=== PATIENT | female | born 1935 | race Caucasian/White ===

== ENCOUNTER 2023-01-09 16:28 | Emergency (ER) | payer MEDICARE ==
[~2023-01-09] VITALS: Ht 149.9 cm; Wt 75.0 kg
[2023-01-09 18:17] LABS: BASO # 0.1 10^3/uL (0.0-0.2); BASO % 0.8 % (0.0-1.0); EOS # 0.1 10^3/uL (0.0-0.5); EOS % 0.9 % (0.0-3.0); HEMATOCRIT 41.1 % (36.0-47.0); HEMOGLOBIN 13.7 g/dl (12.0-15.5); LYMPH # 1.4 10^3/uL (1.5-5.0); LYMPH % 16.1 % (24.0-44.0); MEAN CORPUSCULAR HEMOGLOBIN 31.2 pg (27.0-33.0); MEAN CORPUSCULAR HGB CONC 33.3 g/dl (32.0-36.5); MEAN CORPUSCULAR VOLUME 93.6 fl (80.0-96.0); MONO # 0.8 10^3/uL (0.0-0.8); MONO % 8.8 % (2.0-8.0); NEUTROPHILS # 6.4 10^3/uL (1.5-8.5); NEUTROPHILS % 72.6 % (36.0-66.0); PLATELET COUNT, AUTOMATED 263 10^3/uL (150-450); RED BLOOD COUNT 4.39 10^6/uL (4.00-5.40); WHITE BLOOD COUNT 8.8 10^3/uL (4.0-10.0)
[2023-01-09 18:48] LABS: BLOOD UREA NITROGEN 13 MG/DL (9-23); CALCIUM LEVEL 8.5 MG/DL (8.3-10.6); CARBON DIOXIDE LEVEL 31 MMOL/L (20-31); CHLORIDE LEVEL 90 MMOL/L (98-107); CREATININE FOR GFR 0.91 MG/DL (0.55-1.30); GLOMERULAR FILTRATION RATE > 60.0 (>32); GLUCOSE, FASTING 109 MG/DL (74-106); POTASSIUM SERUM 4.5 MMOL/L (3.5-5.1); SODIUM LEVEL 127 MMOL/L (136-145)
[2023-01-09 19:11] LABS: CK-MB VALUE MASS < 1.0 NG/ML (<3.6)
[2023-01-09 19:12] LABS: DIGOXIN LEVEL 1.7 NG/ML (0.8-2.0)
[2023-01-09 19:22] LABS: CPK CREATINE PHOSPHOKINASE 38 U/L (34-145); MB/CK RELATIVE INDEX 2.63 (< OR =4)
[2023-01-09 20:17] VITALS: O2SAT 93
[2023-01-09] MEDS ORDERED: FUROSEMIDE 40MG/4ML VIAL IV ONE (20:25)
[2023-01-09 21:00] LABS: INR 2.15; PROTHROMBIN TIME 24.4 SECONDS (12.5-14.5)
[2023-01-09] MEDS ORDERED: DOXYCYCLINE HYCLATE 100MG TABLET PO ONE (21:10)
[2023-01-09] MEDS ORDERED: DOXY-443 PO (21:12)
[2023-01-09 21:24] VITALS: BP 138/98; TEMP 97; O2SAT 94
== END 2023-01-09 21:39 | disposition home or self-care (01) ==
LOC: M ED 16:28
DX: I50.20 Unspecified systolic (congestive) heart failure (principal); L03.115 Cellulitis of right lower limb; I11.9 Hypertensive heart disease without heart failure; I25.10 Atherosclerotic heart disease of native coronary artery without angina pectoris; E78.5 Hyperlipidemia, unspecified; E11.9 Type 2 diabetes mellitus without complications; H40.9 Unspecified glaucoma; H35.30 Unspecified macular degeneration; Z88.0 Allergy status to penicillin; Z88.2 Allergy status to sulfonamides; Z88.8 Allergy status to other drugs, medicaments and biological substances; Z79.899 Other long term (current) drug therapy
CPT/HCPCS: 71046; 80048; 80162; 82550; 82553; 83880; 84484; 85025; 85610; 93005; 96374; 99284; J1940

== ENCOUNTER 2023-01-15 10:15 | Inpatient (IN) | payer MEDICARE ==
[~2023-01-15] VITALS: Ht 149.9 cm; Wt 71.0 kg
[~2023-01-15 10:15] MED LIST: DOXY-443 PO
[2023-01-15 11:55] LABS: HEMATOCRIT 39.3 % (36.0-47.0); HEMOGLOBIN 13.7 g/dl (12.0-15.5); MEAN CORPUSCULAR HEMOGLOBIN 31.4 pg (27.0-33.0); MEAN CORPUSCULAR HGB CONC 34.9 g/dl (32.0-36.5); MEAN CORPUSCULAR VOLUME 90.1 fl (80.0-96.0); PLATELET COUNT, AUTOMATED 223 10^3/uL (150-450); RED BLOOD COUNT 4.36 10^6/uL (4.00-5.40); WHITE BLOOD COUNT 9.2 10^3/uL (4.0-10.0)
[2023-01-15 12:25] LABS: BLOOD UREA NITROGEN 15 MG/DL (9-23); CALCIUM LEVEL 9.4 MG/DL (8.3-10.6); CARBON DIOXIDE LEVEL 30 MMOL/L (20-31); CHLORIDE LEVEL 82 MMOL/L (98-107); CREATININE FOR GFR 0.81 MG/DL (0.55-1.30); GLOMERULAR FILTRATION RATE > 60.0 (>32); GLUCOSE, FASTING 132 MG/DL (74-106); SODIUM LEVEL 116 MMOL/L (136-145)
[2023-01-15 12:33] LABS: INR 2.44; PROTHROMBIN TIME 26.9 SECONDS (12.5-14.5)
[2023-01-15] MEDS ORDERED: MED REC IN PROGRESS XX SCH (13:00)
[2023-01-15] MEDS ORDERED: DIGO0.123 PO (13:16)
[2023-01-15] MEDS ORDERED: OXYB10TA23 PO (13:16)
[2023-01-15] MEDS ORDERED: LORA1TAB23 PO (13:16)
[2023-01-15] MEDS ORDERED: AMLO1TAB24 PO (13:16)
[2023-01-15] MEDS ORDERED: VENTAER INH (13:16)
[2023-01-15] MEDS ORDERED: ATEN50TA2 PO (13:16)
[2023-01-15] MEDS ORDERED: ADV250INH INH (13:16)
[2023-01-15] MEDS ORDERED: WARF-18 PO (13:16)
[2023-01-15] MEDS ORDERED: FURO40TA2 PO (13:16)
[2023-01-15] MEDS ORDERED: HOME MED LIST COMPLETE! XX SCH (13:20)
[2023-01-15 13:45] LABS: OSMOLALITY URINE 119 MOSM/KG (50-1400)
[2023-01-15 14:08] LABS: FREE T4 1.21 NG/DL (0.89-1.76); THYROID STIMULATING HORMONE 6.115 uIU/ML (0.55-4.78)
[2023-01-15 14:46] LABS: SODIUM,RANDOM URINE < 10 MMOL/L
[2023-01-15] MEDS: FUROSEMIDE 40MG/4ML VIAL IV SCH ×3 (15:26→23:00)
[2023-01-15 15:42] LABS: ALBUMIN 3.1 G/DL (3.2-5.2); ALKALINE PHOSPHATASE 98 U/L (46-116); ALT/SGPT 10 U/L (7.0-40); AST/SGOT 22 U/L (<34); BILIRUBIN,DIRECT 0.3 MG/DL (<0.4); BLOOD UREA NITROGEN 16 MG/DL (9-23); CALCIUM LEVEL 9.1 MG/DL (8.3-10.6); CARBON DIOXIDE LEVEL 29 MMOL/L (20-31); CHLORIDE LEVEL 84 MMOL/L (98-107); CK-MB VALUE MASS 2.3 NG/ML (<3.6); CPK CREATINE PHOSPHOKINASE 101 U/L (34-145); GLOMERULAR FILTRATION RATE > 60.0 (>32); GLUCOSE, FASTING 106 MG/DL (74-106); MAGNESIUM LEVEL 1.9 MG/DL (1.8-2.4); MB/CK RELATIVE INDEX 2.27 (< OR =4); PHOSPHORUS LEVEL 3.9 MG/DL (2.4-5.1); POTASSIUM SERUM 4.2 MMOL/L (3.5-5.1); SODIUM LEVEL 118 MMOL/L (136-145); TOTAL PROTEIN 5.8 G/DL (5.7-8.2)
[2023-01-15 17:10] VITALS: BP 128/66; TEMP 96.5; O2SAT 95
[2023-01-15] MEDS: LACTOBACILLUS ACIDOPHILUS CAP (BACID) PO SCH (18:13)
[2023-01-15] MEDS: WARFARIN SOD 2.5MG TAB PO SCH (18:16)
[2023-01-15 20:00] VITALS: BP 125/80; TEMP 97.2; O2SAT 93
[2023-01-15 20:26] LABS: BLOOD UREA NITROGEN 14 MG/DL (9-23); CALCIUM LEVEL 8.2 MG/DL (8.3-10.6); CARBON DIOXIDE LEVEL 31 MMOL/L (20-31); CHLORIDE LEVEL 85 MMOL/L (98-107); CREATININE FOR GFR 0.75 MG/DL (0.55-1.30); GLOMERULAR FILTRATION RATE > 60.0 (>32); GLUCOSE, FASTING 121 MG/DL (74-106); POTASSIUM SERUM 3.8 MMOL/L (3.5-5.1); SODIUM LEVEL 122 MMOL/L (136-145)
[2023-01-15] MEDS ORDERED: ALBUTEROL 90 MCG/ACT 8GM HFA INHALER INH PRN (22:10)
[2023-01-15] MEDS ORDERED: LORazepam 1 MG TAB PO PRN (22:10)
[2023-01-16] VITALS: BP 132/75; TEMP 97.9; O2SAT 95
[2023-01-16 02:08] LABS: BLOOD UREA NITROGEN 13 MG/DL (9-23); CALCIUM LEVEL 8.8 MG/DL (8.3-10.6); CARBON DIOXIDE LEVEL 30 MMOL/L (20-31); CHLORIDE LEVEL 88 MMOL/L (98-107); CREATININE FOR GFR 0.81 MG/DL (0.55-1.30); GLOMERULAR FILTRATION RATE > 60.0 (>32); GLUCOSE, FASTING 85 MG/DL (74-106); POTASSIUM SERUM 3.6 MMOL/L (3.5-5.1); SODIUM LEVEL 122 MMOL/L (136-145)
[2023-01-16 04:00] VITALS: BP 127/73; TEMP 98.1; O2SAT 96
[2023-01-16] MEDS: FUROSEMIDE 40MG/4ML VIAL IV SCH ×6 (04:44→23:00)
[2023-01-16 06:16] LABS: HEMOGLOBIN 12.7 g/dl (12.0-15.5); MEAN CORPUSCULAR HEMOGLOBIN 31.3 pg (27.0-33.0); MEAN CORPUSCULAR HGB CONC 34.3 g/dl (32.0-36.5); MEAN CORPUSCULAR VOLUME 91.1 fl (80.0-96.0); PLATELET COUNT, AUTOMATED 186 10^3/uL (150-450); RED BLOOD COUNT 4.06 10^6/uL (4.00-5.40)
[2023-01-16 06:24] LABS: INR 2.67; PROTHROMBIN TIME 28.9 SECONDS (12.5-14.5)
[2023-01-16 06:25] LABS: PARTIAL THROMBOPLASTIN TIME 52.3 SECONDS (24.8-34.2)
[2023-01-16 06:34] LABS: MAGNESIUM LEVEL 1.9 MG/DL (1.8-2.4); PHOSPHORUS LEVEL 4.3 MG/DL (2.4-5.1)
[2023-01-16 06:36] LABS: BLOOD UREA NITROGEN 13 MG/DL (9-23); CALCIUM LEVEL 8.2 MG/DL (8.3-10.6); CARBON DIOXIDE LEVEL 33 MMOL/L (20-31); CHLORIDE LEVEL 88 MMOL/L (98-107); CREATININE FOR GFR 0.78 MG/DL (0.55-1.30); GLOMERULAR FILTRATION RATE > 60.0 (>32); GLUCOSE, FASTING 82 MG/DL (74-106); POTASSIUM SERUM 3.8 MMOL/L (3.5-5.1); SODIUM LEVEL 126 MMOL/L (136-145)
[2023-01-16] MEDS: ADVAIR HFA 115/21MCG INHALER INH SCH ×2 (07:25→20:26)
[2023-01-16 08:05] VITALS: BP 110/18; TEMP 97.3; O2SAT 92
[2023-01-16] MEDS: oxyBUTYnin *DITROPAN XL* 5 MG TABCR PO SCH (09:57)
[2023-01-16] MEDS: LACTOBACILLUS ACIDOPHILUS CAP (BACID) PO SCH ×2 (09:57→18:24)
[2023-01-16 11:31] VITALS: BP 130/60; TEMP 97.2; O2SAT 98
[2023-01-16 13:43] LABS: BLOOD UREA NITROGEN 14 MG/DL (9-23); CALCIUM LEVEL 8.2 MG/DL (8.3-10.6); CARBON DIOXIDE LEVEL 29 MMOL/L (20-31); CHLORIDE LEVEL 88 MMOL/L (98-107); CREATININE FOR GFR 0.87 MG/DL (0.55-1.30); GLOMERULAR FILTRATION RATE > 60.0 (>32); GLUCOSE, FASTING 154 MG/DL (74-106); POTASSIUM SERUM 4.4 MMOL/L (3.5-5.1); SODIUM LEVEL 124 MMOL/L (136-145)
[2023-01-16 15:34] VITALS: BP 132/56; TEMP 97.6; O2SAT 95
[2023-01-16] MEDS: WARFARIN SOD 2.5MG TAB PO SCH (18:24)
[2023-01-16] MEDS ORDERED: MIRALAX *UNIT DOSE* 17GM PACKET PO PRN (18:55)
[2023-01-16 20:29] LABS: BLOOD UREA NITROGEN 17 MG/DL (9-23); CALCIUM LEVEL 8.2 MG/DL (8.3-10.6); CARBON DIOXIDE LEVEL 32 MMOL/L (20-31); CHLORIDE LEVEL 89 MMOL/L (98-107); GLOMERULAR FILTRATION RATE > 60.0 (>32); GLUCOSE, FASTING 142 MG/DL (74-106); SODIUM LEVEL 127 MMOL/L (136-145)
[2023-01-16 20:37] VITALS: BP 152/74; TEMP 97.2; O2SAT 98
[2023-01-16] MEDS: DOCUSATE SODIUM 100MG CAPSULE PO SCH (20:43)
[2023-01-17] VITALS (9 sets, daily range): BP systolic 120–128; BP diastolic 52–60; TEMP 96.8–98.6; O2SAT 87–99
[2023-01-17] MEDS: FUROSEMIDE 40MG/4ML VIAL IV SCH ×6 (03:22→23:00)
[2023-01-17] MEDS: ACETAMINOPHEN TAB 650MG DOSE (2X325MG) PO PRN ×2 (03:24→09:59)
[2023-01-17 06:12] LABS: HEMATOCRIT 35.1 % (36.0-47.0); HEMOGLOBIN 11.7 g/dl (12.0-15.5); MEAN CORPUSCULAR HGB CONC 33.3 g/dl (32.0-36.5); MEAN CORPUSCULAR VOLUME 92.9 fl (80.0-96.0); PLATELET COUNT, AUTOMATED 165 10^3/uL (150-450); RED BLOOD COUNT 3.78 10^6/uL (4.00-5.40); WHITE BLOOD COUNT 11.2 10^3/uL (4.0-10.0)
[2023-01-17 06:34] LABS: INR 2.75; PROTHROMBIN TIME 29.5 SECONDS (12.5-14.5)
[2023-01-17 06:35] LABS: PARTIAL THROMBOPLASTIN TIME 51.1 SECONDS (24.8-34.2)
[2023-01-17 07:36] LABS: ALBUMIN 2.8 G/DL (3.2-5.2); ALKALINE PHOSPHATASE 81 U/L (46-116); ALT/SGPT < 9 U/L (7.0-40); AST/SGOT 12 U/L (<34); BILIRUBIN,TOTAL 0.7 MG/DL (0.3-1.2); BLOOD UREA NITROGEN 16 MG/DL (9-23); CARBON DIOXIDE LEVEL 32 MMOL/L (20-31); CHLORIDE LEVEL 92 MMOL/L (98-107); CREATININE FOR GFR 0.84 MG/DL (0.55-1.30); GLOMERULAR FILTRATION RATE > 60.0 (>32); GLUCOSE, FASTING 111 MG/DL (74-106); POTASSIUM SERUM 3.7 MMOL/L (3.5-5.1); SODIUM LEVEL 128 MMOL/L (136-145); TOTAL PROTEIN 5.1 G/DL (5.7-8.2)
[2023-01-17] MEDS: ADVAIR HFA 115/21MCG INHALER INH SCH ×2 (07:52→20:41)
[2023-01-17 08:52] LABS: MAGNESIUM LEVEL 1.8 MG/DL (1.8-2.4); PHOSPHORUS LEVEL 3.8 MG/DL (2.4-5.1)
[2023-01-17] MEDS: DOCUSATE SODIUM 100MG CAPSULE PO SCH ×2 (09:48→22:04)
[2023-01-17] MEDS: DAPAGLIFLOZIN PROPANEDIOL 10MG TABLET (FARXIGA) PO SCH (09:48)
[2023-01-17] MEDS: SPIRONOLACTONE 12.5MG PER 1/2 TABLET PO SCH (09:49)
[2023-01-17] MEDS: oxyBUTYnin *DITROPAN XL* 5 MG TABCR PO SCH (09:49)
[2023-01-17] MEDS: LACTOBACILLUS ACIDOPHILUS CAP (BACID) PO SCH ×2 (09:51→17:12)
[2023-01-17] MEDS ORDERED: BISACODYL 5MG TAB PO ONE (14:00)
[2023-01-17] MEDS: WARFARIN SOD 2.5MG TAB PO SCH (17:12)
[2023-01-17] MEDS: POTASSIUM CHLORIDE 10MEQ SR TABLET PO SCH (22:04)
[2023-01-17] MEDS: SENNA 8.6 MG TAB (SENOKOT) PO SCH (22:04)
[2023-01-18] VITALS (21 sets, daily range): BP systolic 108–138; BP diastolic 54–77; TEMP 96.7–98.8; O2SAT 83–98
[2023-01-18] MEDS: FUROSEMIDE 40MG/4ML VIAL IV SCH ×6 (03:00→23:00)
[2023-01-18 06:16] LABS: HEMATOCRIT 39.4 % (36.0-47.0); HEMOGLOBIN 12.8 g/dl (12.0-15.5); MEAN CORPUSCULAR HEMOGLOBIN 30.6 pg (27.0-33.0); MEAN CORPUSCULAR HGB CONC 32.5 g/dl (32.0-36.5); MEAN CORPUSCULAR VOLUME 94.3 fl (80.0-96.0); PLATELET COUNT, AUTOMATED 174 10^3/uL (150-450); RED BLOOD COUNT 4.18 10^6/uL (4.00-5.40); WHITE BLOOD COUNT 11.5 10^3/uL (4.0-10.0)
[2023-01-18 06:36] LABS: INR 2.47; PROTHROMBIN TIME 27.2 SECONDS (12.5-14.5)
[2023-01-18 06:37] LABS: PARTIAL THROMBOPLASTIN TIME 48.2 SECONDS (24.8-34.2)
[2023-01-18 06:48] LABS: ALBUMIN 2.9 G/DL (3.2-5.2); ALKALINE PHOSPHATASE 92 U/L (46-116); ALT/SGPT 9 U/L (7.0-40); AST/SGOT 15 U/L (<34); BLOOD UREA NITROGEN 14 MG/DL (9-23); CALCIUM LEVEL 8.8 MG/DL (8.3-10.6); CARBON DIOXIDE LEVEL 33 MMOL/L (20-31); CHLORIDE LEVEL 93 MMOL/L (98-107); CREATININE FOR GFR 0.89 MG/DL (0.55-1.30); GLOMERULAR FILTRATION RATE > 60.0 (>32); GLUCOSE, FASTING 100 MG/DL (74-106); POTASSIUM SERUM 3.7 MMOL/L (3.5-5.1); SODIUM LEVEL 132 MMOL/L (136-145); TOTAL PROTEIN 5.6 G/DL (5.7-8.2)
[2023-01-18] MEDS: ADVAIR HFA 115/21MCG INHALER INH SCH ×2 (08:52→19:37)
[2023-01-18] MEDS: DOCUSATE SODIUM 100MG CAPSULE PO SCH ×2 (08:58→20:48)
[2023-01-18] MEDS: POTASSIUM CHLORIDE 10MEQ SR TABLET PO SCH ×2 (08:58→20:49)
[2023-01-18] MEDS: LACTOBACILLUS ACIDOPHILUS CAP (BACID) PO SCH ×2 (08:58→17:19)
[2023-01-18] MEDS: DAPAGLIFLOZIN PROPANEDIOL 10MG TABLET (FARXIGA) PO SCH (08:58)
[2023-01-18] MEDS: SPIRONOLACTONE 12.5MG PER 1/2 TABLET PO SCH (08:58)
[2023-01-18] MEDS: oxyBUTYnin *DITROPAN XL* 5 MG TABCR PO SCH (08:58)
[2023-01-18] MEDS: ACETAMINOPHEN TAB 650MG DOSE (2X325MG) PO PRN (08:59)
[2023-01-18] MEDS ORDERED: predniSONE 20 MG TAB PO SCH (09:00)
[2023-01-18] MEDS: COLCHICINE 0.6 MG TABLET PO SCH ×3 (12:21→20:49)
[2023-01-18] MEDS: WARFARIN SOD 2.5MG TAB PO SCH (17:19)
[2023-01-18] MEDS: SENNA 8.6 MG TAB (SENOKOT) PO SCH (20:48)
[2023-01-18] MEDS ORDERED: NYSTATIN 100,000 UNITS/GM TOPICAL PWD 15GM TOP PRN (23:00)
[2023-01-19] VITALS (14 sets, daily range): BP systolic 118–142; BP diastolic 48–72; TEMP 96.7–97.4; O2SAT 94–100
[2023-01-19] MEDS: FUROSEMIDE 40MG/4ML VIAL IV SCH ×6 (03:53→23:00)
[2023-01-19] MEDS: ACETAMINOPHEN TAB 650MG DOSE (2X325MG) PO PRN (03:58)
[2023-01-19 06:27] LABS: HEMATOCRIT 37.7 % (36.0-47.0); HEMOGLOBIN 12.2 g/dl (12.0-15.5); MEAN CORPUSCULAR HGB CONC 32.4 g/dl (32.0-36.5); MEAN CORPUSCULAR VOLUME 95.7 fl (80.0-96.0); PLATELET COUNT, AUTOMATED 171 10^3/uL (150-450); RED BLOOD COUNT 3.94 10^6/uL (4.00-5.40); WHITE BLOOD COUNT 11.4 10^3/uL (4.0-10.0)
[2023-01-19 06:38] LABS: INR 2.59; PROTHROMBIN TIME 28.2 SECONDS (12.5-14.5)
[2023-01-19 06:39] LABS: PARTIAL THROMBOPLASTIN TIME 49.1 SECONDS (24.8-34.2)
[2023-01-19 06:46] LABS: ALBUMIN 2.7 G/DL (3.2-5.2); ALKALINE PHOSPHATASE 91 U/L (46-116); ALT/SGPT 10 U/L (7.0-40); AST/SGOT 24 U/L (<34); BILIRUBIN,TOTAL 0.6 MG/DL (0.3-1.2); BLOOD UREA NITROGEN 19 MG/DL (9-23); CALCIUM LEVEL 8.7 MG/DL (8.3-10.6); CARBON DIOXIDE LEVEL 32 MMOL/L (20-31); CHLORIDE LEVEL 96 MMOL/L (98-107); CREATININE FOR GFR 0.88 MG/DL (0.55-1.30); GLOMERULAR FILTRATION RATE > 60.0 (>32); GLUCOSE, FASTING 126 MG/DL (74-106); POTASSIUM SERUM 4.1 MMOL/L (3.5-5.1); SODIUM LEVEL 135 MMOL/L (136-145); TOTAL PROTEIN 5.5 G/DL (5.7-8.2)
[2023-01-19] MEDS: ADVAIR HFA 115/21MCG INHALER INH SCH ×2 (08:32→19:18)
[2023-01-19] MEDS: LACTOBACILLUS ACIDOPHILUS CAP (BACID) PO SCH ×2 (09:30→18:17)
[2023-01-19] MEDS: DAPAGLIFLOZIN PROPANEDIOL 10MG TABLET (FARXIGA) PO SCH (09:33)
[2023-01-19] MEDS: COLCHICINE 0.6 MG TABLET PO SCH ×3 (09:33→21:12)
[2023-01-19] MEDS: SPIRONOLACTONE 12.5MG PER 1/2 TABLET PO SCH (09:34)
[2023-01-19] MEDS: DOCUSATE SODIUM 100MG CAPSULE PO SCH ×2 (09:34→21:12)
[2023-01-19] MEDS: POTASSIUM CHLORIDE 10MEQ SR TABLET PO SCH ×2 (09:34→21:12)
[2023-01-19] MEDS: oxyBUTYnin *DITROPAN XL* 5 MG TABCR PO SCH (09:34)
[2023-01-19] MEDS: WARFARIN SOD 2.5MG TAB PO SCH (16:25)
[2023-01-19] MEDS: SENNA 8.6 MG TAB (SENOKOT) PO SCH (21:12)
[2023-01-20] MEDS: FUROSEMIDE 40MG/4ML VIAL IV SCH ×6 (03:02→19:46)
[2023-01-20 03:06] VITALS: BP 128/72; TEMP 97.8; O2SAT 95
[2023-01-20 05:43] LABS: HEMOGLOBIN 12.5 g/dl (12.0-15.5); MEAN CORPUSCULAR HEMOGLOBIN 30.7 pg (27.0-33.0); MEAN CORPUSCULAR HGB CONC 32.1 g/dl (32.0-36.5); MEAN CORPUSCULAR VOLUME 95.8 fl (80.0-96.0); PLATELET COUNT, AUTOMATED 204 10^3/uL (150-450); RED BLOOD COUNT 4.07 10^6/uL (4.00-5.40)
[2023-01-20 06:10] LABS: ALBUMIN 2.7 G/DL (3.2-5.2); ALKALINE PHOSPHATASE 92 U/L (46-116); ALT/SGPT 21 U/L (7.0-40); AST/SGOT 43 U/L (<34); BILIRUBIN,TOTAL 0.5 MG/DL (0.3-1.2); BLOOD UREA NITROGEN 21 MG/DL (9-23); CALCIUM LEVEL 8.6 MG/DL (8.3-10.6); CARBON DIOXIDE LEVEL 32 MMOL/L (20-31); CHLORIDE LEVEL 96 MMOL/L (98-107); GLOMERULAR FILTRATION RATE > 60.0 (>32); GLUCOSE, FASTING 86 MG/DL (74-106); POTASSIUM SERUM 4.6 MMOL/L (3.5-5.1); SODIUM LEVEL 137 MMOL/L (136-145); TOTAL PROTEIN 5.5 G/DL (5.7-8.2)
[2023-01-20 07:56] VITALS: BP 142/68; TEMP 97.3; O2SAT 96
[2023-01-20] MEDS: ADVAIR HFA 115/21MCG INHALER INH SCH ×2 (08:28→20:18)
[2023-01-20] MEDS: POTASSIUM CHLORIDE 10MEQ SR TABLET PO SCH ×2 (08:56→22:04)
[2023-01-20] MEDS: oxyBUTYnin *DITROPAN XL* 5 MG TABCR PO SCH (08:56)
[2023-01-20] MEDS: DOCUSATE SODIUM 100MG CAPSULE PO SCH ×2 (08:56→22:04)
[2023-01-20] MEDS: LACTOBACILLUS ACIDOPHILUS CAP (BACID) PO SCH ×2 (08:56→17:38)
[2023-01-20] MEDS: DAPAGLIFLOZIN PROPANEDIOL 10MG TABLET (FARXIGA) PO SCH (08:57)
[2023-01-20] MEDS: SPIRONOLACTONE 12.5MG PER 1/2 TABLET PO SCH (08:57)
[2023-01-20] MEDS: COLCHICINE 0.6 MG TABLET PO SCH (08:57)
[2023-01-20 16:04] VITALS: BP 118/72; TEMP 98.2; O2SAT 93
[2023-01-20] MEDS: WARFARIN SOD 2.5MG TAB PO SCH (17:38)
[2023-01-20 18:25] VITALS: BP 120/72; TEMP 97.7; O2SAT 92
[2023-01-20 20:10] VITALS: BP 122/68; O2SAT 90
[2023-01-20] MEDS: SENNA 8.6 MG TAB (SENOKOT) PO SCH (22:05)
[2023-01-20 23:17] VITALS: O2SAT 95
[2023-01-21] MEDS: FUROSEMIDE 40MG/4ML VIAL IV SCH (02:50)
[2023-01-21 06:23] LABS: HEMATOCRIT 40.8 % (36.0-47.0); HEMOGLOBIN 12.9 g/dl (12.0-15.5); MEAN CORPUSCULAR HEMOGLOBIN 30.6 pg (27.0-33.0); MEAN CORPUSCULAR HGB CONC 31.6 g/dl (32.0-36.5); MEAN CORPUSCULAR VOLUME 96.9 fl (80.0-96.0); PLATELET COUNT, AUTOMATED 217 10^3/uL (150-450); RED BLOOD COUNT 4.21 10^6/uL (4.00-5.40); WHITE BLOOD COUNT 6.6 10^3/uL (4.0-10.0)
[2023-01-21 06:52] LABS: ALBUMIN 2.8 G/DL (3.2-5.2); BILIRUBIN,TOTAL 0.6 MG/DL (0.3-1.2); CALCIUM LEVEL 8.8 MG/DL (8.3-10.6); POTASSIUM SERUM 4.7 MMOL/L (3.5-5.1); TOTAL PROTEIN 5.6 G/DL (5.7-8.2)
[2023-01-21] MEDS: ADVAIR HFA 115/21MCG INHALER INH SCH ×2 (08:32→20:06)
[2023-01-21] MEDS: DOCUSATE SODIUM 100MG CAPSULE PO SCH ×2 (09:47→21:33)
[2023-01-21] MEDS: POTASSIUM CHLORIDE 10MEQ SR TABLET PO SCH ×2 (09:47→21:34)
[2023-01-21] MEDS: COLCHICINE 0.6 MG TABLET PO SCH (09:47)
[2023-01-21] MEDS: DAPAGLIFLOZIN PROPANEDIOL 10MG TABLET (FARXIGA) PO SCH (09:47)
[2023-01-21] MEDS: TORSEMIDE 20 MG TAB PO SCH (09:47)
[2023-01-21] MEDS: LACTOBACILLUS ACIDOPHILUS CAP (BACID) PO SCH ×2 (09:47→18:35)
[2023-01-21] MEDS: SPIRONOLACTONE 12.5MG PER 1/2 TABLET PO SCH (09:47)
[2023-01-21] MEDS: oxyBUTYnin *DITROPAN XL* 5 MG TABCR PO SCH (09:48)
[2023-01-21 14:00] VITALS: BP 110/80; TEMP 97.9; O2SAT 92
[2023-01-21] MEDS: WARFARIN SOD 2.5MG TAB PO SCH (18:35)
[2023-01-21 20:51] VITALS: BP 104/78; TEMP 97.7; O2SAT 92
[2023-01-21] MEDS: SENNA 8.6 MG TAB (SENOKOT) PO SCH (21:33)
[2023-01-22 05:49] LABS: HEMOGLOBIN 12.6 g/dl (12.0-15.5); MEAN CORPUSCULAR HEMOGLOBIN 30.7 pg (27.0-33.0); MEAN CORPUSCULAR HGB CONC 32.3 g/dl (32.0-36.5); MEAN CORPUSCULAR VOLUME 95.1 fl (80.0-96.0); PLATELET COUNT, AUTOMATED 188 10^3/uL (150-450); WHITE BLOOD COUNT 5.9 10^3/uL (4.0-10.0)
[2023-01-22 05:57] VITALS: BP 110/78; TEMP 97.7; O2SAT 92
[2023-01-22 06:09] LABS: ALBUMIN 2.7 G/DL (3.2-5.2); BILIRUBIN,TOTAL 0.6 MG/DL (0.3-1.2); CALCIUM LEVEL 8.8 MG/DL (8.3-10.6); CREATININE FOR GFR 0.98 MG/DL (0.55-1.30); GLOMERULAR FILTRATION RATE 57.3 (>32); POTASSIUM SERUM 4.7 MMOL/L (3.5-5.1); TOTAL PROTEIN 5.5 G/DL (5.7-8.2)
[2023-01-22] MEDS: ADVAIR HFA 115/21MCG INHALER INH SCH (08:44)
[2023-01-22] MEDS: DAPAGLIFLOZIN PROPANEDIOL 10MG TABLET (FARXIGA) PO SCH (09:28)
[2023-01-22] MEDS: TORSEMIDE 20 MG TAB PO SCH (09:28)
[2023-01-22] MEDS: DOCUSATE SODIUM 100MG CAPSULE PO SCH (09:28)
[2023-01-22] MEDS: COLCHICINE 0.6 MG TABLET PO SCH (09:28)
[2023-01-22] MEDS: POTASSIUM CHLORIDE 10MEQ SR TABLET PO SCH (09:29)
[2023-01-22] MEDS: LACTOBACILLUS ACIDOPHILUS CAP (BACID) PO SCH (09:29)
[2023-01-22] MEDS: oxyBUTYnin *DITROPAN XL* 5 MG TABCR PO SCH (09:35)
[2023-01-22] MEDS: SPIRONOLACTONE 12.5MG PER 1/2 TABLET PO SCH (09:36)
[2023-01-22] MEDS ORDERED: atenoloL 25 MG TAB PO ONE (12:00)
[2023-01-22] MEDS ORDERED: ATEN25TA PO (12:29)
[2023-01-22] MEDS ORDERED: POTA-136 PO (12:29)
[2023-01-22] MEDS ORDERED: TORS20TA2 PO (12:29)
[2023-01-22] MEDS ORDERED: ALDA25TA2 PO (12:29)
[2023-01-22] MEDS ORDERED: FARX1TAB3 PO (12:29)
[2023-01-22] MEDS ORDERED: COLC0.6T47 PO (12:29)
[2023-01-22] MEDS: WARFARIN SOD 2.5MG TAB PO SCH (16:32)
[2023-01-22] MEDS ORDERED: ATENOLOL 12.5MG PER 1/2 TABLET PO SCH (21:00)
== END 2023-01-22 16:56 | disposition home or self-care (01) | DRG 291 ==
LOC: M ED 10:15 → M ED INP 13:22 → ENRESERV 15:58 → M PCU 17:10 → M MSPAV 01-20 18:22
PROVIDERS: ADMIT Internal Medicine; ATTEND Internal Medicine Nephrology
PROC: B246ZZZ Ultrasonography of Right and Left Heart (ICD-10-PCS; principal; 2023-01-16)
DX: I11.0 Hypertensive heart disease with heart failure (principal); I50.33 Acute on chronic diastolic (congestive) heart failure; J96.01 Acute respiratory failure with hypoxia; E87.1 Hypo-osmolality and hyponatremia; I48.20 Chronic atrial fibrillation, unspecified; I50.812 Chronic right heart failure; E11.9 Type 2 diabetes mellitus without complications; E78.5 Hyperlipidemia, unspecified; M11.20 Other chondrocalcinosis, unspecified site; J45.909 Unspecified asthma, uncomplicated; R32 Unspecified urinary incontinence; I87.2 Venous insufficiency (chronic) (peripheral); I83.90 Asymptomatic varicose veins of unspecified lower extremity; Z66 Do not resuscitate; F41.9 Anxiety disorder, unspecified; M10.071 Idiopathic gout, right ankle and foot; I27.89 Other specified pulmonary heart diseases; G47.33 Obstructive sleep apnea (adult) (pediatric); R19.7 Diarrhea, unspecified; R00.1 Bradycardia, unspecified; H35.30 Unspecified macular degeneration; Z96.641 Presence of right artificial hip joint; Z79.01 Long term (current) use of anticoagulants; Z79.899 Other long term (current) drug therapy; Z88.0 Allergy status to penicillin; Z88.1 Allergy status to other antibiotic agents; Z88.8 Allergy status to other drugs, medicaments and biological substances

== ENCOUNTER → 2024-01-27 | Outpatient (CLI) | payer MEDICARE ==
[~2024-01-27] MED LIST changes: +ADV250INH INH; +ALDA25TA2 PO; +AMLO1TAB24 PO; +ATEN25TA PO; +ATEN50TA2 PO; +COLC0.6T47 PO; +DIGO0.123 PO; +DOXY-323 PO; -DOXY-443 PO; +FARX1TAB3 PO; +FURO40TA2 PO; +LORA1TAB23 PO; +OXYB10TA23 PO; +POTA-136 PO; +TORS20TA2 PO; +VENTAER INH; +WARF-18 PO
[2024-01-27 14:50] LABS: BASO # 0.1 10^3/uL (0.0-0.2); BASO % 0.8 % (0.0-1.0); EOS # 0.2 10^3/uL (0.0-0.5); HEMATOCRIT 45.5 % (36.0-47.0); HEMOGLOBIN 14.6 g/dl (12.0-15.5); LYMPH # 1.3 10^3/uL (1.5-5.0); MEAN CORPUSCULAR HEMOGLOBIN 31.4 pg (27.0-33.0); MEAN CORPUSCULAR HGB CONC 32.1 g/dl (32.0-36.5); MEAN CORPUSCULAR VOLUME 97.8 fl (80.0-96.0); MONO # 0.7 10^3/uL (0.0-0.8); MONO % 7.3 % (2.0-8.0); NEUTROPHILS # 6.7 10^3/uL (1.5-8.5); NEUTROPHILS % 74.5 % (36.0-66.0); PLATELET COUNT, AUTOMATED 218 10^3/uL (150-450); RED BLOOD COUNT 4.65 10^6/uL (4.00-5.40)
[2024-01-27 15:31] LABS: ALBUMIN 3.5 G/DL (3.2-5.2); BILIRUBIN,TOTAL 0.8 MG/DL (0.3-1.2); CREATININE FOR GFR 1.15 MG/DL (0.55-1.30); GLOMERULAR FILTRATION RATE 47.5 (>32); POTASSIUM SERUM 4.8 MMOL/L (3.5-5.1); TOTAL PROTEIN 6.5 G/DL (5.7-8.2)
== END ==
LOC: M WUC 11:02
PROVIDERS: ATTEND Registered Nurse
DX: L03.032 Cellulitis of left toe (principal)